=== PATIENT | female | born 1980 | race Caucasian/White ===

== ENCOUNTER 2016-11-17 07:42 | Emergency (ER) | payer BC ==
[2016-11-17] MEDS ORDERED: Ketorolac Tromethamine 30 MG/ML VIAL ONE (08:08)
[2016-11-17 08:20] LABS: BHCG - Serum Negative (NEGATIVE)
[2016-11-17 08:21] LABS: Pregs Control Background? CLEAR/WHITE (CLR/WHITE); Pregs Control Bar Appear? YES (CONTROL BAR)
[2016-11-17 08:23] LABS: Mean Corpuscular HGB CONC 28.9 g/dL (32.0-36.0); Mean Corpuscular Hemoglobin 19.4 pg (27.0-31.0); Mean Corpuscular Volume 67.1 fl (81.0-99.0); Mean Platelet Volume 6.1 fL (7.4-10.4); Platelet Count 518 thou/uL (130-400); RBC Distribution Width 17.3 % (11.5-14.5); Red Blood Cell (RBC) Count 4.63 mill/uL (4.20-5.40)
[2016-11-17 08:24] LABS: ALT (SGPT) 14 U/L (8-55); AST (SGOT) 15 U/L (5-34); Albumin 4.1 g/dL (3.5-5.0); Alkaline Phosphatase 59 U/L (40-150); Anion Gap 16 mmol/L (10-20); BUN (Urea Nitrogen) 8 mg/dL (7.0-18.7); Bilirubin, Total 0.3 mg/dL (0.2-1.2); Calc. Creatinine Clearance 0 mL/min (70-130); Calcium 8.8 mg/dL (7.8-10.44); Carbon Dioxide 21 mmol/L (22-29); Chloride 105 mmol/L (98-107); Estimated GFR-MDRD 69; Globulin 3.6 g/dL (2.4-3.5); Glucose 120 mg/dL (70-105); Potassium 3.8 mmol/L (3.5-5.1); Protein, Total 7.7 g/dL (6.0-8.3); Sodium 138 mmol/L (136-145)
[2016-11-17] MEDS ORDERED: Fentanyl 100 MCG/2 ML VIAL ONE (08:26)
[2016-11-17 08:36] LABS: Bilirubin Negative (Negative); Blood, Urine Negative (Negative); Clarity Clear (Clear); Glucose, Urine (Dipstick) Negative (Negative); Leukocyte Negative (Negative); Nitrite Negative (Negative); Protein, Urine (Dipstick) Trace mg/dL (Neg-Trace); Specific Gravity, Urine 1.015 (1.005-1.030); Urobilinogen 0.2 mg/dL (0.2-1.0); pH, Urine 8.5 (5.0-9.0)
[2016-11-17 08:53] LABS: #Basophils 0.1 thou/uL (0.0-0.2); #Lymphocytes 1.6 thou/uL (1.20-3.40); #Monocytes 0.8 thou/uL (0.11-0.59); #Neutrophils 14.6 thou/uL (1.40-6.50); %Basophils 0.5 % (0.0-1.0); %Eosinophils 0.1 % (0.0-10.0); %Lymphocytes 9.3 % (21.0-51.0); %Monocytes 4.6 % (0.0-10.0); %Neutrophils 85.6 % (42.0-75.0); Hypochromia SLIGHT = 6-15 cells (100X) (0-5/hpf); MDiff Complete? YES; Microcytosis MODERATE=15-30 cells (100X) (0-5/hpf)
--- NOTE | 2016-11-17 16:33 | CT ---
NONCONTRAST CT OF THE ABDOMEN AND PELVIS: History: Left lower quadrant pain. Technique: Axial slices were acquired without oral or IV contrast. Coronal and sagittal reconstructi ons were then done. FINDINGS: The lung bases are clear. No focal hepatic masses are seen. There may be some fatty infiltration of the liver and some focal fatty sparring near the junction between the right and left lobes. The sple en, pancreas, and adrenal glands were unremarkable. No stones were seen in the gallbladder. There wa s no sign of renal mass or calcification. There is no obstruction. The aorta appears normal. On slice 47 and 48 there is an equivocal area of haziness just anterior to the lower descending colo n. This is located a few centimeters above the level of the left iliac crest. My understanding is th at this does correlate with the patient's site of pain. This is most often seen in inflammatory cond itions such as diverticulosis, but no actual diverticula were seen in this patient to confirm such. No free air or free fluid was present. There is no sign of intestinal obstruction. CT of the pelvis showed no pelvic masses, free fluid, or adenopathy of concern. There does appear to be a central herniation of the L5-S1 disc. Degenerative changes are seen in the L4-5 disc as well. IMPRESSION: 1. Equivocal area of inflammatory stranding around the lower descending colon just above the level o f the left iliac crest. Various inflammatory causes, including diverticulitis can cause this. 2. Suggestion of central disc protrusion at L5-S1. POS: HOME
== END 2016-11-17 10:15 | disposition home or self-care (01) ==
LOC: BURERS 07:42
DX: K52.9 Noninfective gastroenteritis and colitis, unspecified (principal); F41.9 Anxiety disorder, unspecified; F32.9 Major depressive disorder, single episode, unspecified; Z87.891 Personal history of nicotine dependence; Z79.2 Long term (current) use of antibiotics
CPT/HCPCS: 74176; 80053; 81003; 84703; 85025; 96361; 96374; 96375; J1885; J3010